=== PATIENT | female | born 1955 | race American Indian/Alaskan Native ===

== ENCOUNTER 2017-06-12 12:48 | Outpatient (CLI) | payer OTHER ==
--- NOTE | 2017-06-12 13:49 | Mammography Report ---
Screening mammogram: Routine views are compared to a prior examination in 2015. There has been interval breast reduction surgery. The current breast patte generally fatty replaced, symmetric, and unremarkable. Circumscribed single nodules previously seen in each breast are no longer present. No other significant changes. CAD used. Impression: Normal exam. Recommendation: Annual mammogram followup. BI-RADS CATEGORY: 1 = Negative ACR BI-RADS MAMMOGRAPHIC CODES: 0 = Needs additional imaging evaluation; 1 = Negative; 2 = Benign; 3 = Probably benign; 4 = Suspicious; 5 = Malignant; 6 = Known biopsy-proven malignancy COMMENT: 1. Dense breast tissue, i.e., adenosis, fibrocystic changes, etc., may obscure an underlying neoplasm. 2. Approximately 10% of cancers are not detected with mammography. 3. A negative mammography report should not delay biopsy if a clinically suspicious mass is present.
== END 2017-06-12 12:49 | disposition home or self-care (01) ==
LOC: MAMMO 12:48
PROVIDERS: ATTEND Internal Medicine
DX: Z12.31 Encounter for screening mammogram for malignant neoplasm of breast (principal)
CPT/HCPCS: 77067; G0202

== ENCOUNTER 2019-08-17 00:13 | Inpatient (IN) | payer BC, OTHER ==
[2019-08-17] MEDS ORDERED: ZOFRAN ODT ONE ×2 (00:35→00:38)
[2019-08-17] MEDS ORDERED: MORPHINE IM ONE (00:36)
[2019-08-17] MEDS ORDERED: IBUPROFEN PO ONE ×2 (00:36)
[2019-08-17] MEDS ORDERED: ZOFRAN ODT PO ONE ×2 (00:36→00:39)
[2019-08-17] MEDS ORDERED: MORPHINE ONE (00:36)
--- NOTE | 2019-08-17 01:35 | Event Note ---
Face to Face: For this encounter I have reviewed the PA/PROFILE SHAPER OPERATOR documentation, treatment plan, medical decision making, and I had face to face time with this patient. I evaluated Mrs. Graves. She has Colles Fracture. She fell onto outstretched hand. Awaiting further instruction from orthopedic surgeon Dr. Damian.
--- NOTE | 2019-08-17 01:35 | XRay Report ---
RIGHT HAND, 3 VIEWS 08/17/2019 INDICATION / CLINICAL INFORMATION: fall-hand pain. COMPARISON: None available. FINDINGS: No acute fracture of the right hand. Colles' fracture noted. Signer Name: Robert Ward MD Signed: 08/17/2019 1:31 AM Workstation Name: [id number]
--- NOTE | 2019-08-17 01:37 | XRay Report ---
RIGHT WRIST, 2 VIEWS 08/17/2019 INDICATION / CLINICAL INFORMATION: fall-wrist pain. COMPARISON: None available. FINDINGS: Distal radial fracture with dorsal displacement of the distal fragments which are overriding. The uln ar styloid processes poorly visualized. There may be a minimally displaced distal ulnar fracture. Carpal alignment is normal in 2 views. Signer Name: Robert Ward MD Signed: 08/17/2019 1:33 AM Workstation Name: [id number]
--- NOTE | 2019-08-17 02:14 | Emergency Department Report ---
ED Upper Extremity Inj HPI - General Chief Complaint: Fall Stated Complaint: RT WRIST INJURY Source: patient Mode of arrival: Ambulatory Limitations: No Limitations - History of Present Illness Initial Comments: Patient is a 64-year-old Afro-Citizen Of [place] female with a history of asthma, hypertension, and glaucoma who presents to the ED with [place] of acute onset persistent severe right wrist pain and deformity with swelling after she slipped on the floor, fell down and landed on the right wrist about one hour ago at home. Patient states that she is unable to perform active range of motion with the right wrist the right hand because of severe pain. Patient denies head or neck injury, back pain, hip pain, abdominal pain, numbness and tingling or weakness of right wrist the right hand, shoulder pain, dizziness, syncope, chest pain, shortness of breath, or loss of consciousness. MD Complaint: Injury to:: right, forearm, wrist, hand -: Sudden, hour(s) (1) Other Extremity Injury: Hand: Right (pain), Wrist: Right (pain, swelling, deformity), Forearm: Right (pain) Other Injuries: none Handedness: right Place: home Severity scale (0 -10): 9 Improves With: rest Worsens With: movement of extremity Context: fall (slipped and fell on floor, landed on right wrist and hand), injury Associated Symptoms: denies other symptoms. denies: weakness, numbness, neck pain, suspects foreign body, nausea/vomiting, heard/felt popping sensat - Related Data Allergies Allergy/AdvReac Type Severity Reaction Status Date / Time acetaminophen [From Percocet] Allergy Itching Verified 08/17/19 00:20 fentanyl Allergy Unknown Verified 08/17/19 00:20 lacidipine Allergy Itching Unverified 10/26/15 11:27 lanolin [From Phisoderm] Allergy Itching Unverified 10/26/15 11:27 lisinopril Allergy Unknown Verified 08/17/19 00:20 oxycodone [From Percocet] Allergy Itching Verified 08/17/19 00:20 petrolatum,white Allergy Itching Unverified 10/26/15 11:27 [From Phisoderm] ED Review of Systems ROS: Stated complaint: RT WRIST INJURY Other details as noted in HPI Constitutional: denies: chills, fever Eyes: denies: eye pain, eye discharge, vision change ENT: denies: ear pain, throat pain Respiratory: denies: cough, shortness of breath, SOB with exertion, SOB at rest, wheezing Cardiovascular: denies: chest pain, palpitations Endocrine: no symptoms reported. denies: excessive sweating, flushing, intolerance to cold, intolerance to heat Gastrointestinal: denies: abdominal pain, nausea, diarrhea Genitourinary: denies: urgency, dysuria, discharge Musculoskeletal: joint swelling (right wrist), arthralgia (right wrist). denies: back pain Skin: denies: rash, lesions Neurological: denies: headache, weakness, paresthesias Psychiatric: denies: anxiety, depression Hematological/Lymphatic: denies: easy bleeding, easy bruising ED Past Medical Hx - Past Medical History Previous Medical History?: Yes Hx Hypertension: Yes Hx Asthma: Yes Additional medical history: [place] - Surgical History Past Surgical History?: Yes Additional Surgical History: right tibia fx. x2. hysterectomy. - Social History Smoking Status: Never Smoker Substance Use Type: None ED Physical Exam - General Limitations: No Limitations General appearance: alert, in no apparent distress - Head Head exam: Present: atraumatic, normocephalic, normal inspection - Eye Eye exam: Present: normal appearance, PERRL, EOMI Pupils: Present: normal accommodation - ENT ENT exam: Present: normal exam, normal orophraynx, mucous membranes moist, TM's normal bilaterally, normal external ear exam - Neck Neck exam: Present: normal inspection, full ROM - Respiratory Respiratory exam: Present: normal lung sounds bilaterally. Absent: respiratory distress, wheezes, rales, rhonchi, chest wall tenderness, accessory muscle use, prolonged expiratory - Cardiovascular Cardiovascular Exam: Present: regular rate, normal rhythm, normal heart sounds. Absent: systolic murmur, diastolic murmur, rubs, gallop - GI/Abdominal GI/Abdominal exam: Present: soft, normal bowel sounds. Absent: distended, tenderness, guarding, rebound - Extremities Exam Extremities exam: Present: normal inspection, tenderness (right wrist and hand), normal capillary refill, joint swelling (right wrist, hand). Absent: full ROM (limited due to pain) - Back Exam Back exam: Present: normal inspection, full ROM. Absent: tenderness, CVA tenderness (L), paraspinal tenderness, vertebral tenderness - Neurological Exam Neurological exam: Present: alert, oriented X3, CN II-XII intact, normal gait, reflexes normal - Psychiatric Psychiatric exam: Present: normal affect, normal mood - Skin Skin exam: Present: warm, dry, intact, normal color. Absent: rash ED Course Vital Signs 08/17/19 02:07 Pulse Rate 65 Respiratory 17 Rate Blood Pressure 127/81 [Left] O2 Sat by Pulse 100 Oximetry - Reevaluation(s) Reevaluation #1: 08/17/19 02:29 This is a 64-year-old female who presented to the ED with severe right wrist pain and swelling with deformity after she slipped and fell down at home and landed on the right wrist. In the ED, patient is alert and oriented 3 and is not in distress but is in severe pain. Patient was treated for pain, right wrist x-ray shows distal radial fracture with dorsal displacement of the distal fragments which are overriding. The ulnar styloid processes poorly visualized. There may be a minimally displaced distal ulnar fracture. Carpal alignment is normal in 2 views. Right hand x-ray shows no acute fractures of the right hand but of note is a Colles' fracture of the right wrist. Patient's case was discussed with the ED attending physician Dr. William Chapa who also evaluated the patient and agree with the plan of care. Patient requested admission because of severe pain. I consulted with the orthopedic surgeon tonsorial artist Dr. Rickie Zambrano who advised that the patient be admitted to the hospital for pain control and he shall consult on the patient in the morning. I also discussed the patient's case with Dr. Landa the hospitalist physician on-call who admitted the patient for pain control in the hospital. ED Medical Decision Making - Radiology Data Radiology results: report reviewed, image reviewed Findings [facility] [address] [place] [address] XRay Report Signed Patient: BERRY WALDEN MR#: [id number] : 1955 Acct:[id number] Age/Sex: 64 / F ADM Date: 08/17/19 Loc: ED Attending Dr: Ordering Physician: LEE AVILES Date of Service: 08/17/19 Procedure(s): XR wrist 2V RT Accession Number(s): [id number] cc: LEE AVILES Fluoro Time In Minutes: RIGHT WRIST, 2 VIEWS 08/17/2019 INDICATION / CLINICAL INFORMATION: fall-wrist pain. COMPARISON: None available. FINDINGS: Distal radial fracture with dorsal displacement of the distal fragments which are overriding. The ulnar styloid processes poorly visualized. There may be a minimally displaced distal ulnar fracture. Carpal alignment is normal in 2 views. Signer Name: Robert aWrd MD Signed: 08/17/2019 1:33 AM Workstation Name: [id number] Transcribed By: KENDALL Dictated By: Robert Ward MD Electronically Authenticated By: Robert Ward MD Signed Date/Time: 08/17/19132 DD/ 0 TD/TT: Findings [facility] [address] [place] [address] XRay Report Signed Patient: BERRY WALDEN MR#: [id number] : 1955 Acct:[id number] Age/Sex: 64 / F ADM Date: 08/17/19 Loc: ED Attending Dr: Ordering Physician: LEE AVILES Date of Service: 08/17/19 Procedure(s): XR hand 2V RT Accession Number(s): [id number] cc: LEE AVILES Fluoro Time In Minutes: RIGHT HAND, 3 VIEWS 08/17/2019 INDICATION / CLINICAL INFORMATION: fall-hand pain. COMPARISON: None available. FINDINGS: No acute fracture of the right hand. Colles' fracture noted. Signer Name: Robert Ward MD Signed: 08/17/2019 1:31 AM Workstation Name: [id number] Transcribed By: KENDALL Dictated By: Robert Ward MD Electronically Authenticated By: Robert Ward MD Signed Date/Time: 08/17/19130 DD/ 9 TD/TT: - Medical Decision Making This is a 64-year-old female who presented to the ED with severe right wrist pain and swelling with deformity after she slipped and fell down at home and landed on the right wrist. In the ED, patient is alert and oriented 3 and is not in distress but is in severe pain. Patient was treated for pain, right wrist x-ray shows distal radial fracture with dorsal displacement of the distal fragments which are overriding. The ulnar styloid processes poorly visualized. There may be a minimally displaced distal ulnar fracture. Carpal alignment is normal in 2 views. Right hand x-ray shows no acute fractures of the right hand but of note is a Colles' fracture of the right wrist. Patient's case was discussed with the ED attending physician Dr. William Chapa who also evaluated the patient and agree with the plan of care. Patient requested admission because of severe pain. I consulted with the orthopedic surgeon tonsorial artist Dr. Rickie Zambrano who advised that the patient be admitted to the hospital for pain control and he shall consult on the patient in the morning. I also discussed the patient's case with Dr. Landa the hospitalist physician on-call who admitted the patient for pain control in the hospital. - Differential Diagnosis Colles' fracture; hand fracture; forearm contusion; hand sprain; Critical care attestation.: If time is entered above; I have spent that time in minutes in the direct care of this critically ill patient, excluding procedure time. ED Disposition Clinical Impression: Closed traumatic displaced Colles' fracture of right radius Contusion of right hand Qualifiers: Encounter type: initial encounter Qualified Code(s): S60.221A - Contusion of right hand, initial encounter Disposition: -09 OP ADMIT IP TO THIS HOSP Is pt being admited?: Yes Does the pt Need Aspirin: Yes Condition: Stable Referrals: PRIMARY CARE, [Primary Care Provider] - 3-5 Days Time of Disposition: 02:26 Print Language: MEXICAN
[2019-08-17 02:24] LABS: Basophils % (Auto) 0.3 % (0.0-1.8); Eosinophils # (Auto) 0.1 K/mm3 (0.0-0.4); Eosinophils % (Auto) 0.8 % (0.0-4.3); Hematocrit 40.4 % (30.3-42.9); Hemoglobin 13.3 gm/dl (10.1-14.3); Lymphocytes # (Auto) 1.1 K/mm3 (1.2-5.4); Lymphocytes % (Auto) 14.7 % (13.4-35.0); Mean Corpuscular HGB Conc 33 % (30-34); Mean Corpuscular Volume 88 fl (79-97); Monocytes # (Auto) 0.7 K/mm3 (0.0-0.8); Monocytes % (Auto) 8.9 % (0.0-7.3); Platelet Count 248 K/mm3 (140-440); Red Blood Count 4.61 M/mm3 (3.65-5.03); Red Cell Distribution Width 13.9 % (13.2-15.2)
[2019-08-17 02:33] LABS: Alanine Aminotransferase 14 units/L (7-56); BUN/Creatinine Ratio 23; Blood Urea Nitrogen 18 mg/dL (7-17); Calcium 8.9 mg/dL (8.4-10.2); Hemolysis Index 13
[2019-08-17] MEDS ORDERED: TYLENOL PO PRN (03:00)
[2019-08-17] MEDS ORDERED: NACL 0.9% 1000 ML 1,000 ML IV SCH (03:00)
[2019-08-17] MEDS ORDERED: PERCOCET 5/325 PO PRN (03:00)
[2019-08-17] MEDS ORDERED: ZOFRAN IV PRN (03:00)
[2019-08-17] MEDS ORDERED: SODIUM CHLORIDE FLUSH SYRINGE 10 ML IV PRN (03:00)
[2019-08-17] MEDS ORDERED: MILK OF MAGNESIA PO PRN (03:00)
--- NOTE | 2019-08-17 03:06 | History and Physical Report ---
<SARAY BRAVO - Last Filed: 08/17/19 05:29> History of Present Illness Date of examination: 08/17/19 Date of admission: 08/17/19 Chief complaint: right had pain, s/p fall History of present illness: Patient is a 64-year-old a female with PMHx of asthma, hypertension, and glaucoma who presents to the ER with c/o severe right wrist pain and swelling prior to arrival. Pt states that she stepped on something on the floor, she slipped and end up on her right wrist. Patient states that she is had immediate pain in the right wrist after the fall, she was unable to lift the wrist or perform range of motion, any activity ellicit severe pain, she decided to come to the ER for evaluation. Pt denies any LOC, denies any head inry, denies any back pain or hip pain, denies numbness and tingling or weakness of right wrist the right hand. In the ER an xray of the right wrist showed distal radial fracture with dorsal displace, colly's fracture. Past History Past Medical History: hypertension, other (collins, glaucoma) Past Surgical History: Other (right tibia fx, left wist fx) Social history: no significant social history Family history: no significant family history Medications and Allergies Allergies Allergy/AdvReac Type Severity Reaction Status Date / Time fentanyl Allergy Unknown Verified 08/17/19 00:20 lacidipine Allergy Itching Unverified 10/26/15 11:27 lanolin [From Phisoderm] Allergy Itching Unverified 10/26/15 11:27 lisinopril Allergy Unknown Verified 08/17/19 00:20 oxycodone [From Percocet] Allergy Itching Verified 08/17/19 00:20 petrolatum,white Allergy Itching Unverified 10/26/15 11:27 [From Phisoderm] Active Meds: Active Medications Enoxaparin Sodium (Lovenox) 30 mg SUB-Q QDAY LUL Review of Systems Musculoskeletal: other (s/p fall) Exam - Constitutional Vitals: Temp Pulse Resp BP Pulse Ox 65 17 127/81 100 08/17/19 02:07 08/17/19 02:07 08/17/19 02:07 08/17/19 02:07 General appearance: Present: mild distress, obese - EENT Eyes: Present: EOM intact ENT: hearing intact - Neck Neck: Present: normal ROM - Respiratory Respiratory effort: normal Respiratory: right: CTA - Cardiovascular Rhythm: regular - Extremities Extremities: No edema, abnormal (right hand/wrist) Peripheral Pulses: within normal limits - Abdominal General gastrointestinal: Present: non-tender, non-distended Female genitourinary: Present: deferred - Rectal Rectal Exam: deferred - Integumentary Integumentary: Present: warm, dry - Musculoskeletal Musculoskeletal: other (rt wrist pain) - Psychiatric Psychiatric: cooperative Results - Labs CBC & Chem 7: 08/17/19 01:45 08/17/19 01:45 Labs: Laboratory Last Values WBC 7.8 K/mm3 (4.5-11.0) 08/17/19 01:45 RBC 4.61 M/mm3 (3.65-5.03) 08/17/19 01:45 Hgb 13.3 gm/dl (10.1-14.3) 08/17/19 01:45 Hct 40.4 % (30.3-42.9) 08/17/19 01:45 MCV 88 fl (79-97) 08/17/19 01:45 MCH 29 pg (28-32) 08/17/19 01:45 MCHC 33 % (30-34) 08/17/19 01:45 RDW 13.9 % (13.2-15.2) 08/17/19 01:45 Plt Count 248 K/mm3 (140-440) 08/17/19 01:45 Lymph % (Auto) 14.7 % (13.4-35.0) 08/17/19 01:45 [place] % (Auto) 8.9 % (0.0-7.3) H 08/17/19 01:45 Eos % (Auto) 0.8 % (0.0-4.3) 08/17/19 01:45 Baso % (Auto) 0.3 % (0.0-1.8) 08/17/19 01:45 Lymph # 1.1 K/mm3 (1.2-5.4) L 08/17/19 01:45 [place] # 0.7 K/mm3 (0.0-0.8) 08/17/19 01:45 Eos # 0.1 K/mm3 (0.0-0.4) 08/17/19 01:45 Baso # 0.0 K/mm3 (0.0-0.1) 08/17/19 01:45 Seg Neutrophils % 75.3 % (40.0-70.0) H 08/17/19 01:45 Seg Neutrophils # 5.9 K/mm3 (1.8-7.7) 08/17/19 01:45 Sodium 142 mmol/L (137-145) 08/17/19 01:45 Potassium 3.7 mmol/L (3.6-5.0) 08/17/19 01:45 Chloride 104.9 mmol/L (98-107) 08/17/19 01:45 Carbon Dioxide 24 mmol/L (22-30) 08/17/19 01:45 Anion Gap 17 mmol/L 08/17/19 01:45 BUN 18 mg/dL (7-17) H 08/17/19 01:45 Creatinine 0.8 mg/dL (0.7-1.2) 08/17/19 01:45 Estimated GFR > 60 ml/min 08/17/19 01:45 BUN/Creatinine Ratio 23 % 08/17/19 01:45 Glucose 137 mg/dL (65-100) H 08/17/19 01:45 Calcium 8.9 mg/dL (8.4-10.2) 08/17/19 01:45 Total Bilirubin 0.20 mg/dL (0.1-1.2) 08/17/19 01:45 AST 19 units/L (5-40) 08/17/19 01:45 ALT 14 units/L (7-56) 08/17/19 01:45 Alkaline Phosphatase 103 units/L (35-129) 08/17/19 01:45 Total Protein 6.9 g/dL (6.3-8.2) 08/17/19 01:45 Albumin 4.0 g/dL (3.9-5) 08/17/19 01:45 Albumin/Globulin Ratio 1.4 % 08/17/19 01:45 Assessment and Plan Assessment and plan: 1. S/p accidental fall 2. Distal radia fx with dorsal displacement 3. Colle's fracture 4. HTN 5. H/o asthma (stable) 6. Glaucoma Plan: Admit for right wrist fracture Consult ortho for fracture repair surgery (Dr Copeland consulted) Pain management IVF for hydration Keep NPO for fracture repair Awaiting EKG for cardiac clearance Further paln per ortho Advance Directives: Yes VTE prophylaxis?: Mechanical Plan of care discussed with patient/family: Yes <CHAN BLACKBURN Leticia - Last Filed: 08/17/19 05:47> History of Present Illness Date of admission: 08/17/19 04:03 Medications and Allergies Active Meds: Active Medications Acetaminophen (Tylenol) 650 mg PO Q4H PRN PRN Reason: Pain MILD(1-3)/Fever >100.5/ROSEN Enoxaparin Sodium (Lovenox) 40 mg SUB-Q QDAY@1000 LUL Famotidine (Pepcid) 20 mg IV BID LUL Sodium Chloride (Nacl 0.9% 1000 Ml) 1,000 mls @ 100 mls/hr IV DIRECT LUL Magnesium Hydroxide (Milk Of Magnesia) 30 ml PO Q4H PRN PRN Reason: Constipation Ondansetron HCl (Zofran) 4 mg IV Q8H PRN PRN Reason: Nausea And Vomiting Sodium Chloride (Sodium Chloride Flush Syringe 10 Ml) 10 ml IV BID LUL Sodium Chloride (Sodium Chloride Flush Syringe 10 Ml) 10 ml IV PRN PRN PRN Reason: LINE FLUSH Exam - Constitutional Vitals: Temp Pulse Resp BP Pulse Ox 65 17 127/81 100 08/17/19 02:07 08/17/19 02:07 08/17/19 02:07 08/17/19 02:07 Results - Labs CBC & Chem 7: 08/17/19 01:45 08/17/19 01:45 Labs: Laboratory Last Values WBC 7.8 K/mm3 (4.5-11.0) 08/17/19 01:45 RBC 4.61 M/mm3 (3.65-5.03) 08/17/19 01:45 Hgb 13.3 gm/dl (10.1-14.3) 08/17/19 01:45 Hct 40.4 % (30.3-42.9) 08/17/19 01:45 MCV 88 fl (79-97) 08/17/19 01:45 MCH 29 pg (28-32) 08/17/19 01:45 MCHC 33 % (30-34) 08/17/19 01:45 RDW 13.9 % (13.2-15.2) 08/17/19 01:45 Plt Count 248 K/mm3 (140-440) 08/17/19 01:45 Lymph % (Auto) 14.7 % (13.4-35.0) 08/17/19 01:45 [place] % (Auto) 8.9 % (0.0-7.3) H 08/17/19 01:45 Eos % (Auto) 0.8 % (0.0-4.3) 08/17/19 01:45 Baso % (Auto) 0.3 % (0.0-1.8) 08/17/19 01:45 Lymph # 1.1 K/mm3 (1.2-5.4) L 08/17/19 01:45 [place] # 0.7 K/mm3 (0.0-0.8) 08/17/19 01:45 Eos # 0.1 K/mm3 (0.0-0.4) 08/17/19 01:45 Baso # 0.0 K/mm3 (0.0-0.1) 08/17/19 01:45 Seg Neutrophils % 75.3 % (40.0-70.0) H 08/17/19 01:45 Seg Neutrophils # 5.9 K/mm3 (1.8-7.7) 08/17/19 01:45 Sodium 142 mmol/L (137-145) 08/17/19 01:45 Potassium 3.7 mmol/L (3.6-5.0) 08/17/19 01:45 Chloride 104.9 mmol/L (98-107) 08/17/19 01:45 Carbon Dioxide 24 mmol/L (22-30) 08/17/19 01:45 Anion Gap 17 mmol/L 08/17/19 01:45 BUN 18 mg/dL (7-17) H 08/17/19 01:45 Creatinine 0.8 mg/dL (0.7-1.2) 08/17/19 01:45 Estimated GFR > 60 ml/min 08/17/19 01:45 BUN/Creatinine Ratio 23 % 08/17/19 01:45 Glucose 137 mg/dL (65-100) H 08/17/19 01:45 Calcium 8.9 mg/dL (8.4-10.2) 08/17/19 01:45 Total Bilirubin 0.20 mg/dL (0.1-1.2) 08/17/19 01:45 AST 19 units/L (5-40) 08/17/19 01:45 ALT 14 units/L (7-56) 08/17/19 01:45 Alkaline Phosphatase 103 units/L (35-129) 08/17/19 01:45 Total Protein 6.9 g/dL (6.3-8.2) 08/17/19 01:45 Albumin 4.0 g/dL (3.9-5) 08/17/19 01:45 Albumin/Globulin Ratio 1.4 % 08/17/19 01:45 Assessment and Plan Assessment and plan: 64-year-old woman with a history of hypertension, asthma, glaucoma status post fall, fell on the right side and sustained a fracture of the right wrist. IV pain medication, orthopedic was consulted to see the patient
[2019-08-17] MEDS ORDERED: DILAUDID IV ONE (03:47)
[2019-08-17] MEDS: MORPHINE IV PRN ×2 (06:27→10:21)
[2019-08-17 09:28] LABS: Hematocrit 41.6 % (30.3-42.9); Hemoglobin 13.4 gm/dl (10.1-14.3); Mean Corpuscular HGB Conc 32 % (30-34); Mean Corpuscular Volume 89 fl (79-97); Platelet Count 216 K/mm3 (140-440); Red Blood Count 4.68 M/mm3 (3.65-5.03)
[2019-08-17 09:44] LABS: BUN/Creatinine Ratio 21; Blood Urea Nitrogen 15 mg/dL (7-17); Calcium 8.9 mg/dL (8.4-10.2); Hemolysis Index 30
[2019-08-17] MEDS ORDERED: LOVENOX SUB-Q SCH ×2 (10:00)
[2019-08-17] MEDS ORDERED: SODIUM CHLORIDE FLUSH SYRINGE 10 ML IV SCH (10:00)
[2019-08-17] MEDS ORDERED: PEPCID IV SCH (10:00)
[2019-08-17] MEDS ORDERED: DILAUDID ONE (11:17)
[2019-08-17] MEDS ORDERED: DIPRIVAN 10 MG/ML IV ONE (11:17)
[2019-08-17] MEDS ORDERED: XYLOCAINE MPF 2% ONE (11:18)
[2019-08-17] MEDS ORDERED: NEOSPORIN GU IR ONE (11:32)
[2019-08-17] MEDS ORDERED: MARCAINE 0.25% INFILTRATI ONE (11:32)
[2019-08-17] MEDS ORDERED: MARCAINE-EPI 0.25%-1:200,000 INFILTRATI ONE (11:39)
[2019-08-17] MEDS ORDERED: DILAUDID IV PRN (11:46)
--- NOTE | 2019-08-17 11:48 | Anesthesia Consultation ---
Anesthesia Consult and Med Hx Date of service: 08/17/19 - Airway Anesthetic Teeth Evaluation: Partials ROM Head & Neck: Adequate Mental/Hyoid Distance: Adequate Mallampati Class: Class III Intubation Access Assessment: Possibly Difficult - Pulmonary Exam CTA: Yes - Cardiac Exam Cardiac Exam: RRR - Pre-Operative Health Status ASA Pre-Surgery Classification: ASA2 Proposed Anesthetic Plan: General Nerve Block: Supraclavicular - Pulmonary Hx Smoking: No Hx Asthma: Yes (last inhaler use >1yr ago) - Cardiovascular System Hx Hypertension: Yes Hx Heart Attack/AMI: No - Central Nervous System CVA: No - Gastrointestinal Hx Gastroesophageal Reflux Disease: No - Endocrine Hx Renal Disease: No Hx Liver Disease: No Hx Insulin Dependent Diabetes: No Hx Non-Insulin Dependent Diabetes: No Hx Thyroid Disease: No - Other Systems Hx Obesity: Yes - Additional Comments Anesthesia Medical History Comments: No hx anesthetic complications.
--- NOTE | 2019-08-17 11:48 | Anesthesia Day of Surgery ---
Anesthesia Day of Surgery - Day of Surgery Patient Examined: Yes Patient H&P Reviewed: Yes Patient is NPO: Yes
[2019-08-17] MEDS ORDERED: ANCEF/STERILE WATER 2 GM/20 ML IV NR (12:00)
[2019-08-17] MEDS ORDERED: LACTATED RINGERS 1,000 ML IV SCH (12:00)
[2019-08-17] MEDS ORDERED: LACTATED RINGERS 1,000 ML ONE (12:01)
[2019-08-17] MEDS ORDERED: VERSED ONE (12:02)
[2019-08-17] MEDS ORDERED: DECADRON ONE (13:33)
[2019-08-17] MEDS ORDERED: ZOFRAN ONE (13:33)
[2019-08-17] MEDS ORDERED: NACL 0.9% IR ONE (13:36)
--- NOTE | 2019-08-17 14:36 | Procedure Note ---
Date of procedure: 08/17/19 Pre-op diagnosis: Displaced right distal radius fracture Post-op diagnosis: same Procedure: Open reduction internal fixation right distal radius Procedure The patient was brought to the OR placed in the OR table in supine position following induction and intubation by anesthesia the patient's right upper extremity was prepped and draped in the usual sterile manner A timeout procedure was done to identify the patient and the correct operative site. The arm was exsanguinated followed by inflation of the pneumatic tourniquet to 250 mmHg. A volar incision was made along the distal radius as is taken down sharply through skin and subcutaneous the flexor carpi radialis tendon was seen next the incision was carried deep to this structure we encountered the quadratus tendon this was then debrided from the distal radius using a periosteal elevator the fracture site was seen she was noted to have a small comminuted fragment along the volar surface after the gentle manipulation the fracture fragments were reduced into a more anatomic position next the right distal radius locking plate was applied via C-arm care was taken to insert both locking and nonlocking screws of various lengths AP and lateral views were obtained showing good redu ction at the fracture and in placement of our hardware the wrist was taken through a range of motion and was found to be stable next the wound was copiously irrigated and was closed in a standard routine fashion. Dressings were applied as well as a well-padded volar splint the patient tolerated the procedure there were no complications and she was sent to postanesthesia recovery in a stable condition Anesthesia: MAC, regional Surgeon: DIAMOND SHERWOOD (Basia Osborne, 1st assistant clinical director) Estimated blood loss: minimal Pathology: none Condition: stable Disposition: PACU
--- NOTE | 2019-08-17 15:19 | XRay Report ---
RIGHT WRIST, 2 VIEWS INDICATION: FX RT RADIUS/ORIF RT RADIUS. COMPARISON: None. IMPRESSION: 13 seconds of fluoroscopy time was provided by radiology during open reduction and inter nal fixation of the distal radial fracture. Alignment is near-anatomic. Probable ulnar styloid fractu re. There is mild diffuse soft tissue swelling. Signer Name: Arthur Painting Jr, MD Signed: 08/17/2019 3:15 PM Workstation Name: [id number]
[2019-08-17 16:18] VITALS: BP 133/81
--- NOTE | 2019-08-17 16:44 | Discharge Summary ---
Providers - Providers Date of Admission: 08/17/19 04:03 Attending physician: MARY BRISENO MD 08/17/19 02:27 Consult to Physician [CONS] Stat Comment: Consulting Provider: DIAMOND SHERWOOD Physician Instructions: Splint right wrist; Pain control; to see in AM Reason For Exam: Colles' fracture; Hand contusion Primary care physician: [employer] Hospitalization Condition: Stable Disposition: DC-01 TO HOME OR SELFCARE Time spent for discharge: 35 mins Exam - Constitutional Vitals: Temp Pulse Resp BP Pulse Ox 97.5 F L 62 18 133/81 100 08/17/19 15:40 08/17/19 15:40 08/17/19 15:40 08/17/19 15:40 08/17/19 15:40 Plan Follow up with: SMOOTH RODRIGUEZ MD [Primary Care Provider] - 3-5 Days DIAMOND SHERWOOD MD [Staff Physician] - 7 Days Prescriptions: Acetaminophen/Codeine [Tylenol /Codeine # 3 tab] 1 tab PO Q6H PRN #14 tab PRN Reason: Pain , Severe (7-10)
[2019-08-18] MEDS ORDERED: VERSED IV NR (06:00)
== END 2019-08-17 18:25 | disposition home or self-care (01) | DRG 512 ==
LOC: ED 00:13 → 3B-SURG 04:03
PROVIDERS: ADMIT Internal Medicine; ATTEND Internal Medicine
PROC: 0PSH04Z Reposition Right Radius with Internal Fixation Device, Open Approach (ICD-10-PCS; principal; 2019-08-17)
DX: S52.531A Colles' fracture of right radius, initial encounter for closed fracture (principal); J45.909 Unspecified asthma, uncomplicated; S60.221A Contusion of right hand, initial encounter; W01.0XXA Fall on same level from slipping, tripping and stumbling without subsequent striking against object, initial encounter; I10 Essential (primary) hypertension; S52.691A Other fracture of lower end of right ulna, initial encounter for closed fracture; H40.9 Unspecified glaucoma; E66.9 Obesity, unspecified; Z68.32 Body mass index [BMI] 32.0-32.9, adult; Z90.710 Acquired absence of both cervix and uterus; Z88.5 Allergy status to narcotic agent; Y93.89 Activity, other specified; Y92.098 Other place in other non-institutional residence as the place of occurrence of the external cause; Y99.8 Other external cause status
CPT/HCPCS: 36415; 64450; 80048; 80053; 85025; 93005; 93010; G0378; C1713; J1100; J1170; J1650; J2250; J2270; J2405; J2704; J7030; J7120; Q0162

== ENCOUNTER 2019-09-24 12:28 | Outpatient (CLI) | payer BC ==
--- NOTE | 2019-09-27 13:10 | Mammography Report ---
DIGITAL SCREENING MAMMOGRAM WITH CAD, 09/24/2019 INDICATION: Routine screening mammography. History of bilateral reduction mammoplasty. TECHNIQUE: Digital bilateral 2D mammography was obtained in the craniocaudal and mediolateral obliq ue projections. This examination was interpreted with the benefit of Computer-Aided Detection analysi s. COMPARISON: 09/11/2018 FINDINGS: Breast Density: The breasts are almost entirely fatty. There is no evidence of dominant mass, suspicious calcifications or architectural distortion in eithe r breast. Minimal bilateral postsurgical scar. IMPRESSION: No mammographic evidence of malignancy. Follow up recommendation: Routine yearly BI-RADS Category 2: Benign. A "normal" or negative report should not discourage follow up or biopsy of a clinically significant f inding. A written summary of these findings will be mailed to the patient. The patient will be entered into a mammography reporting system which will generate a reminder letter for the patient's next appointmen t at the appropriate interval. The [employer] recommends yearly mammograms starting at age 40 and continuing as l dom as a woman is in good health. Breast MRI is recommended for women with an approximate 20-25% or greater lifetime risk of breast cancer, including women with a strong family history of breast or ova adenike cancer or who have been treated for Hodgkin's disease. Signer Name: Saurabh Turcios MD Signed: 09/27/2019 1:06 PM Workstation Name: [id number]
== END 2019-09-24 12:29 | disposition home or self-care (01) ==
LOC: MAMMO 12:28
PROVIDERS: ATTEND Internal Medicine
DX: Z12.31 Encounter for screening mammogram for malignant neoplasm of breast (principal)
CPT/HCPCS: 77067

== ENCOUNTER 2019-09-27 13:12 | Outpatient (CLI) | payer BC ==
--- NOTE | 2019-09-27 14:31 | XRay Report ---
RIGHT WRIST, 3 VIEWS INDICATION: S52.531A COLLES' FRACTURE OF RIGHT RADIUS INITIAL ENCOUNTER FOR C. COMPARISON: 08/17/2019 IMPRESSION: The distal radial fracture has been internally fixated with a metal plate and screws sin ce the previous exam. Alignment is anatomic. Fracture lines remain evident with little if any calcifi ed callus identified. Mildly displaced ulnar styloid fracture is unchanged. No significant DJD. Signer Name: Arthur Painting Jr, MD Signed: 09/27/2019 2:27 PM Workstation Name: [id number]
== END 2019-09-27 13:13 | disposition home or self-care (01) ==
LOC: XRAY 13:12
PROVIDERS: ATTEND Orthopaedic Surgery
DX: S52.531A Colles' fracture of right radius, initial encounter for closed fracture (principal); X58.XXXA Exposure to other specified factors, initial encounter; Y93.89 Activity, other specified; Y92.89 Other specified places as the place of occurrence of the external cause; Y99.8 Other external cause status

== ENCOUNTER 2019-11-19 21:00 | Emergency (ER) | payer BC ==
--- NOTE | 2019-11-19 21:29 | Emergency Department Report ---
ED Asthma HPI - General Chief Complaint: Adult Asthma Stated Complaint: WHEEZING/SOB X 2 DAYS Time Seen by Provider: 11/19/19 21:24 Source: patient Mode of arrival: Ambulatory Limitations: No Limitations - History of Present Illness Initial Comments: Patient is a 64-year-old female that presents emergency room with complaints of shortness of breath and wheezing. Patient states she has asthma. Patient states she has not had an asthma attack for 3 years. Patient states her symptoms started 2 days ago. Patient states her symptoms are worsening. Carlos luciano states that she gets relief from her inhaler. Patient states she took her inhaler 3 PM today. Patient denies fever or chills. Patient states that whenever this happens she needs prednisone. Patient denies chest pain. Patient denies fever chills. Patient denies nausea vomiting. Patient denies other physical complaints. MD Complaint: shortness of breath, wheezing -: Sudden Asthma History: childhood onset Severity: mild, moderate, worse than usual Associated Symptoms: dry cough. denies: productive cough, fever, chest pain, hemoptysis, leg edema, syncope Treatments Prior to Arrival: inhaled bronchodilator - Related Data Current Asthma Therapy: inhaled bronchodilator Home Medications Medication Instructions Recorded Confirmed Last Taken Amlodipine Besylate 2.5 mg PO DAILY 08/17/19 08/17/19 08/16/19 Loratadine 10 mg PO DAILY 08/17/19 08/17/19 08/16/19 Potassium 20 mg PO DAILY 08/17/19 08/17/19 08/16/19 Previous Rx's Medication Instructions Recorded Last Taken Type Acetaminophen/Codeine [Tylenol 1 tab PO Q6H PRN #14 tab 08/17/19 Unknown Rx /Codeine # 3 tab] Doxycycline Hyclate [Doxycycline 100 mg PO Q12HR 10 Days #20 tab 11/19/19 Unknown Rx Hyclate TAB] methylPREDNISolone [Medrol 4MG 4 mg PO DAILY 6 Days #1 tab.ds.pk 11/19/19 Unknown Rx DOSEPAK (21 tabs)] Allergies Allergy/AdvReac Type Severity Reaction Status Date / Time fentanyl Allergy Unknown Verified 08/17/19 00:20 lacidipine Allergy Itching Unverified 10/26/15 11:27 lanolin [From Phisoderm] Allergy Itching Unverified 10/26/15 11:27 lisinopril Allergy Unknown Verified 08/17/19 00:20 oxycodone [From Percocet] Allergy Itching Verified 08/17/19 00:20 petrolatum,white Allergy Itching Unverified 10/26/15 11:27 [From Phisoderm] ED Review of Systems ROS: Stated complaint: WHEEZING/SOB X 2 DAYS Other details as noted in HPI Constitutional: denies: chills, fever Eyes: denies: eye pain, eye discharge, vision change ENT: denies: ear pain, throat pain Respiratory: cough, shortness of breath, wheezing Cardiovascular: denies: chest pain, palpitations Endocrine: no symptoms reported Gastrointestinal: denies: abdominal pain, nausea, diarrhea Genitourinary: denies: urgency, dysuria, discharge Musculoskeletal: denies: back pain, joint swelling, arthralgia Skin: denies: rash, lesions Neurological: denies: headache, weakness, paresthesias Psychiatric: denies: anxiety, depression Hematological/Lymphatic: denies: easy bleeding, easy bruising ED Past Medical Hx - Past Medical History Previous Medical History?: Yes Hx Hypertension: Yes Hx Heart Attack/AMI: No Hx Liver Disease: No Hx Renal Disease: No Hx Asthma: Yes (last inhaler use >1yr ago) Additional medical history: [place] - Surgical History Past Surgical History?: Yes Additional Surgical History: right tibia fx. x2. hysterectomy. - Family History Family history: no significant - Social History Smoking Status: Never Smoker Substance Use Type: None - Medications Home Medications: Home Medications Medication Instructions Recorded Confirmed Last Taken Type Acetaminophen/Codeine [Tylenol 1 tab PO Q6H PRN #14 tab 08/17/19 Unknown Rx /Codeine # 3 tab] Amlodipine Besylate 2.5 mg PO DAILY 08/17/19 08/17/19 08/16/19 History Loratadine 10 mg PO DAILY 08/17/19 08/17/19 08/16/19 History Potassium 20 mg PO DAILY 08/17/19 08/17/19 08/16/19 History Doxycycline Hyclate [Doxycycline 100 mg PO Q12HR 10 Days #20 tab 11/19/19 Unknown Rx Hyclate TAB] methylPREDNISolone [Medrol 4MG 4 mg PO DAILY 6 Days #1 tab.ds.pk 11/19/19 Unknown Rx DOSEPAK (21 tabs)] ED Physical Exam - General Limitations: No Limitations General appearance: alert, in no apparent distress - Head Head exam: Present: atraumatic, normocephalic - Eye Eye exam: Present: normal appearance - ENT ENT exam: Present: mucous membranes moist - Neck Neck exam: Present: normal inspection - Respiratory Respiratory exam: Present: normal lung sounds bilaterally. Absent: respiratory distress, wheezes, rales - Cardiovascular Cardiovascular Exam: Present: regular rate, normal rhythm. Absent: systolic murmur, diastolic murmur, rubs, gallop - GI/Abdominal GI/Abdominal exam: Present: soft, normal bowel sounds. Absent: distended, tenderness, guarding - Extremities Exam Extremities exam: Present: normal inspection - Back Exam Back exam: Present: normal inspection - Neurological Exam Neurological exam: Present: alert, oriented X3 - Psychiatric Psychiatric exam: Present: normal affect, normal mood - Skin Skin exam: Present: warm, dry, intact, normal color. Absent: rash ED Course Vital Signs 11/19/19 21:09 Temperature 97.6 F Pulse Rate 70 Blood Pressure 132/91 - Reevaluation(s) Reevaluation #1: I discussed all clinical findings with the patient. Discussed plan of care patient. Patient agrees with plan of care. Patient be discharged home. Patient stable for discharge. Patient given discharge instructions. Patient voiced understanding of discharge instructions. 11/19/19 21:35 ED Medical Decision Making - Medical Decision Making Patient is a 64-year-old female that presents emergency room with complaints of worsening asthmatic symptoms and shortness of breath and wheezing and cough. Patient's lungs were clear on initial evaluation. Patient clinical findings are consistent with bronchitis and asthma exacerbation. Patient currently has an albuterol inhaler at home which is working well. Patient will be prescribed antibiotics and steroids. Patient stable for discharge. Patient will be discharged home. - Differential Diagnosis bronchitis, asthma, wheezing, cough, shortness of breath. Critical care attestation.: If time is entered above; I have spent that time in minutes in the direct care of this critically ill patient, excluding procedure time. ED Disposition Clinical Impression: SOB (shortness of breath), Cough, Bronchitis Asthma exacerbation Qualifiers: Asthma severity: mild Asthma persistence: intermittent Qualified Code(s): J45.21 - Mild intermittent asthma with (acute) exacerbation Disposition: - TO HOME OR SELFCARE Is pt being admited?: No Does the pt Need Aspirin: No Condition: Stable Instructions: Acute Bronchitis (ED), Asthma (ED) Additional Instructions: Patient to follow up with primary care in 2-3 days. Patient to follow up with nutrition aides teacher in 2-3 days. Patient to continue to use her albuterol inhaler as needed. Patient to return to ER if condition worsens or changes or new symptoms arise. Patient to take medicines as directed. Patient to take Tylenol or ibuprofen when necessary for pain or fever. Patient to increase water. Patient to rest. Prescriptions: Doxycycline Hyclate [Doxycycline Hyclate TAB] 100 mg PO Q12HR 10 Days #20 tab methylPREDNISolone [Medrol 4MG DOSEPAK (21 tabs)] 4 mg PO DAILY 6 Days #1 tab.ds.pk Referrals: PRIMARY CARE, [Referring] - 2-3 Days Time of Disposition: 21:33
[2019-11-19] MEDS ORDERED: methylPREDNISolone Sod Succinate 125 MG/2 ML INJ IM ONE (21:33)
[2019-11-19] MEDS ORDERED: LIDOCAINE-MPF (1%) 10 MG/1 ML VIAL 5 ML INFILTRATI ONE (21:33)
[2019-11-19 22:04] VITALS: BP 111/77
== END 2019-11-19 22:29 | disposition home or self-care (01) ==
LOC: ED 21:00
DX: J45.901 Unspecified asthma with (acute) exacerbation (principal); I10 Essential (primary) hypertension; Z90.710 Acquired absence of both cervix and uterus; Z88.1 Allergy status to other antibiotic agents; Z88.5 Allergy status to narcotic agent; Z91.018 Allergy to other foods; Z88.8 Allergy status to other drugs, medicaments and biological substances
CPT/HCPCS: 96372; 99281; J0696; J2930

== ENCOUNTER 2019-11-30 07:36 | Outpatient (CLI) | payer BC ==
[2019-11-30 08:00] LABS: Hematocrit 39.7 % (30.3-42.9); Hemoglobin 12.9 gm/dl (10.1-14.3); Mean Corpuscular HGB Conc 33 % (30-34); Mean Corpuscular Volume 87 fl (79-97); Platelet Count 247 K/mm3 (140-440); Red Blood Count 4.54 M/mm3 (3.65-5.03); Red Cell Distribution Width 13.6 % (13.2-15.2)
[2019-11-30 08:21] LABS: Alanine Aminotransferase 8 units/L (7-56); Albumin 3.3 g/dL (3.9-5); BUN/Creatinine Ratio 21; Blood Urea Nitrogen 19 mg/dL (7-17); Calcium 8.7 mg/dL (8.4-10.2); Chol/HDL Ratio 2.46 %; HDL Cholesterol 63 mg/dL (40-59); Hemolysis Index 4; LDL Cholesterol,Direct 89 mg/dL (50-130)
== END 2019-11-30 07:37 | disposition home or self-care (01) ==
LOC: LAB 07:36
PROVIDERS: ATTEND Internal Medicine
DX: I06.1 Rheumatic aortic insufficiency (principal)
CPT/HCPCS: 36415; 80053; 80061; 85027

== ENCOUNTER 2022-02-22 09:13 | Outpatient (CLI) | payer OTHER ==
--- NOTE | 2022-02-25 11:21 | Mammography Report ---
DIGITAL SCREENING MAMMOGRAM WITH CAD, 02/22/2022 CLINICAL INFORMATION / INDICATION: Routine screening TECHNIQUE: Digital bilateral 2D mammography was obtained in the craniocaudal and mediolateral obliqu e projections. This examination was interpreted with the benefit of Computer-Aided Detection analysis . COMPARISON: 09/24/2019 and prior FINDINGS: Breast Density: The breasts are almost entirely fatty. No dominant mass, suspicious calcifications, or architectural distortion in either breast. , Reduction changes are again seen. IMPRESSION: No mammographic evidence of malignancy. Follow up recommendation: Routine yearly BI-RADS Category 2: BENIGN. A "normal" or negative report should not discourage follow up or biopsy of a clinically significant f inding. A written summary of these findings will be mailed to the patient. The patient will be entered into a mammography reporting system which will generate a reminder letter for the patient's next appointmen t at the appropriate interval. The [employer] recommends yearly mammograms starting at age 40 and continuing as l dom as a woman is in good health. Breast MRI is recommended for women with an approximate 20-25% or greater lifetime risk of breast cancer, including women with a strong family history of breast or ova adenike cancer or who have been treated for Hodgkin's disease. Signer Name: Santhosh Mejia MD Signed: 02/25/2022 11:16 AM Workstation Name: [id number]
== END 2022-02-22 09:14 | disposition home or self-care (01) ==
LOC: MAMMO 09:13
PROVIDERS: ATTEND Internal Medicine
DX: Z12.31 Encounter for screening mammogram for malignant neoplasm of breast (principal)
CPT/HCPCS: 77067